=== PATIENT | male | born 1965 | race African-American/Black ===

== ENCOUNTER 2018-12-25 10:27 | Emergency (ER) | payer OTHER ==
[2018-12-25] MEDS ORDERED: Ibuprofen TAB* 600 MG PO ONE (10:39)
--- NOTE | 2018-12-25 10:44 | ED ---
Lower Extremity - HPI Summary HPI Summary: The patient is a 53 y/o M presenting to [facility] with a chief complaint of gradual worsening pain in the left popliteal area onset approximately a month ago. He reports that he has bad knees chronically for which he receives Cortisone shots through orthopedic services, and he has also been seen by Dr. Strange for x -rays which visualized degenerative changes in April 2018. Currently, the aching pain is rated 8/10 in severity. He states he usually takes Aleve at home for pain relief but has not taken any medications today prior to arrival. While he is able to bend the left knee and ambulate, the pain is aggravated by movement especially with standing. He additionally c/o edema in the bilateral lower extremities not seemingly worse on one side or the other. He denies any fevers or left hip pain. He has not traveled long-distance recently, and he denies any known trauma. PMHx: HTN. FHx: blood clots in mother, HTN, DM, cardiac disease. Nonsmoker, occasional EtOH, no substance use. Medications reviewed. Allergies noted. - History of Current Complaint Chief Complaint: EDExtremityLower Stated Complaint: LEFT KNEE PAIN PER PT Hx Obtained From: Patient Mechanism Of Injury: Unknown - no known trauma, hx of chronic knee pain Onset/Duration: Weeks - about a month Severity Initially: Moderate Severity Currently: Severe Pain Intensity: 8 Pain Scale Used: 0-10 Numeric Timing: Lasting Weeks Location: Is Discrete @ - left popliteal area Character Of Pain: Aching Associated Signs And Symptoms: Positive: Knee Pain - left, Other - edema in BLE ; Negative: left hip pain. Negative: Fever Aggravating Factor(s): Standing, Ambulation, Movement Alleviating Factor(s): Rest Able to Bear Weight: Yes - pain with ambulation but able to Related History: Other - chronic knee pain - Allergies/Home Medications Allergies/Adverse Reactions: Allergies Allergy/AdvReac Type Severity Reaction Status Date / Time No Known Allergies Allergy Verified 12/25/18 10:41 Home Medications: Home Medications Amlodipine Besylate [Norvasc] 10 mg PO DAILY 12/25/18 [History Confirmed ] Hydrochlorothiazide TAB* [Hydrodiuril TAB*] 25 mg PO DAILY 12/25/18 [History Confirmed 12/25/18] PMH/Surg Hx/FS Hx/Imm Hx Endocrine/Hematology History: Denies: Hx Diabetes Cardiovascular History: Reports: Hx Hypertension Denies: Hx Hypercholesterolemia Musculoskeletal History: Reports: Other Musculoskeletal History - chronic knee pain - Surgical History Surgical History: None Surgery Procedure, Year, and Place: none Infectious Disease History: No Infectious Disease History: Denies: Traveled Outside the [place] in Last 30 Days - Family History Known Family History: Positive: Cardiac Disease, Hypertension, Diabetes, Other - blood clots in mother - Social History Alcohol Use: Occasionally Hx Substance Use: No Substance Use Type: Reports: None Hx Tobacco Use: No Smoking Status (MU): Never Smoked Tobacco Review of Systems Negative: Fever Positive: Edema - bilateral, Other - pain in the left popliteal area, Negative: left hip pain All Other Systems Reviewed And Are Negative: Yes Physical Exam - Summary Physical Exam Summary: Constitutional: Well-developed, Obese, Alert. (-) Distressed Skin: Warm, Dry HENT: Normocephalic; Atraumatic Eyes: Conjunctiva normal Neck: Musculoskeletal ROM normal neck. (-) JVD, (-) Stridor, (-) Nuchal rigidity Cardio: Rhythm regular, rate normal, Heart sounds normal; Intact distal pulses; Radial pulses are 2+ and symmetric. (-) Murmur Pulmonary/Chest wall: Effort normal. (-) Respiratory distress, (-) Wheezes, (-) Rales Abd: Soft, (-) tenderness, (-) Distension, (-) Guarding, (-) Rebound Musculoskeletal: Tenderness of the left popliteal fossa, FROM of knee, no erythema, 2+ DP pulse, No tenderness of L hip/ankle/foot. (-) Edema Lymph: (-) Cervical adenopathy Neuro: Alert, Oriented x3 Psych: Mood and affect Normal Triage Information Reviewed: Yes Vital Signs On Initial Exam: Initial Vitals Temp Pulse Resp BP Pulse Ox 98.3 F 93 16 130/93 97 12/25/18 10:28 12/25/18 10:28 12/25/18 10:28 12/25/18 10:28 12/25/18 10:28 Vital Signs Reviewed: Yes Procedures - Sedation Patient Received Moderate/Deep Sedation with Procedure: No Diagnostics - Vital Signs Vital Signs Temp Pulse Resp BP Pulse Ox 12/25/18 10:28 98.3 F 93 16 130/93 97 - Laboratory Lab Statement: Any lab studies that have been ordered have been reviewed, and results considered in the medical decision making process. - Radiology Left Knee XR Radiology Interpretation Completed By: Radiologist Summary of Radiographic Findings: Impression: 1. No evidence for fracture. 2. Moderate to severe osteoarthritic change. ED physician has reviewed this report. - Ultrasound LLE DVT US Ultrasound Interpretation Completed By: Radiologist Summary of Ultrasound Findings: Impression: No evidence for deep venous thrombosis. ED physician has reviewed this report. Re-Evaluation - Re-Evaluation First Eval Re-Evaluation Time: 12:05 Change: Improved Comment: His pain has improved. Neg DVT US, We discussed all results and plan for discharge home and f/u ortho 12/28. Lower Extremity Course/Dx - Course Course Of Treatment: 53 y/o male w hx osteoarthritis p/w posterior L knee pain. Full ROM low suspicion septic joint. Worsening pain over 1 month, will check US given location of pain. Also check XR. Given motrin - Diagnoses Provider Diagnoses: Knee pain, left Discharge ED - Sign-Out/Discharge Documenting (check all that apply): Patient Departure - Patient will be discharged home. - Discharge Plan Condition: Stable Disposition: HOME Patient Education Materials: Knee Pain (ED) Forms: *Gen. Provider Communication Referrals: Care [facility] [Outside] - 3 Days Additional Instructions: You were seen in the emergency department for knee pain. Your XR showed arthritis, your DVT scan was negative. If any studies were not completed at the time of discharge you will be called with the relevant results. Please follow up with your primary care doctor in the next 2-3 days and return to the emergency department for worsening pain, or concerning symptoms. It was a pleasure taking care of you today. - Billing Disposition and Condition Condition: STABLE Disposition: Home - Attestation Statements Document Initiated by Flaco: Yes Documenting Scribe: Delfina Ferreira Provider For Whom Flaco is Documenting (Include Credential): MD José Miguel Schmittibadolph Attestation: Delfina Odonnell scribed for Dr. Suen Jaquez MD on 12/25/18 at 1219. Scribe Documentation Reviewed: Yes Provider Attestation: The documentation as recorded by the Delfina fontanez accurately reflects the service I personally performed and the decisions made by me, Dr. Seun Jaquez MD Status of Scribe Document: Viewed
[2018-12-25] MEDS ORDERED: Lidocaine 1% INJ* 10 MG/ML 30 ML SDV INJ ONE (12:04)
[2018-12-25 13:18] VITALS: BP 159/106
== END 2018-12-25 12:51 | disposition home or self-care (01) ==
LOC: ED 10:27
DX: M25.562 Pain in left knee (principal); M17.12 Unilateral primary osteoarthritis, left knee; I10 Essential (primary) hypertension; Z79.899 Other long term (current) drug therapy
CPT/HCPCS: 99282; A9270-GY